=== PATIENT | female | born 1990 | race Caucasian/White ===

== ENCOUNTER 2024-03-05 09:14 | Outpatient (AMB) | payer BC, SELFPAY ==
--- NOTE | 2024-03-05 09:06 | A.OFFPC_ITS ---
Vital Signs 03/05/24 09:35 Height 5 ft 1.61 in Weight 172 lb BMI 31.9 BP 106/68 Blood Pressure Location Lt brachial Position Sitting Pulse 74 Pulse Source Pulse Oximeter Pulse Oximetry (%) 97 Oxygen Delivery Method Room Air Intake Visit Reasons: est care Intake Note: New patient visit Title Department Manager Required: No Allergies No Known Allergies Allergy (Verified 03/05/24 09:06) Medication List - Last Reconciled 03/05/24 by Brunilda Freire PA-C escitalopram oxalate 20 mg PO DAILY norgestimate-ethinyl estradiol 0.18/0.215/0.25 mg-35 mcg (28) (Tri-Estarylla) 1 tab PO DAILY pantoprazole 40 mg PO DAILY valacyclovir 500 mg PO DAILY Tobacco use date assessed: 03/05/24 Dental Screening Dental Screen Date: 03/05/24 Did you have a dental visit in the last 12 months?: Yes Did you have a dental problem in the last 6 months where you did not have access to dental care?: No Was dental information given to patient?: Patient has dentist HPI est care HPI Details History of Present Illness Social History - Employed in [employer] (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 - Recently initiated yoga as a form of e xercise for stress management. - Reports limited alcohol intake, with m ild irregular consumption. - Previously , currently undergoi ng divorce proceedings; has primary custody of an fpyff-trmv-bog daughter. - Living with mother, who provides suppo rt. Review of Systems - Gastrointestinal: Reports frequent bel kristen and chronic nocturnal heartburn. - Psychological: Reports occasional anxi ety attacks not directly linked to stress. Physical Exam General: Cooperative, healthy appearing, comfortable, no acute distress and well developed Orientation: Patient oriented x3 Limitations: No limitations Head: Normal to inspection Ears: Hearing grossly normal bilaterally Nose: Normal external nose present Face and sinus: Normal facial exam Eyes: Appearance normal, both eyes and all related structures Neck: Normal visual inspection and Yes full ROM Respiratory: Normal respiratory effort and able to speak in complete sentences. Clear to auscultation bilaterally Cardiovascular: Regular rate and rhythm. Normal S1 and S2 GI: Normal to inspection. Soft to palpation and nontender Skin: No rashes or lesions noted Neuro: Patient oriented x3 Extremities: Normal to inspection Results Plan - Generalized Anxiety Disorder: Continue escitalopram 20 mg daily. Initiate lorazepam on an as-needed basis for acute anxiety episodes, with close monitoring for frequency to evaluate efficacy of primary medication. Discussed pursuing therapy to develop coping mechanisms. - Gastroesophageal Reflux Disease GERD): Transition from pantoprazole to esomeprazole Nexium) 20 mg daily. Referred for a gastroenterology evaluation for potential endoscopy to assess for esophagitis and H. pylori. Advised dietary modifications including small frequent meals and avoidance of known triggers. - Hemorrhoids: Referral to colorectal [facility] for evaluation of persistent symptomatic hemorrhoid and discuss potential interventions. - Herpes Simplex Virus: Patient to humaira nue valacyclovir as needed for outbreaks. Patient was informed and verbally consented to the use of an ambient scribe for clinic note documentation during this visit. Discussion Notes I discussed with the patient the current status and management of her anxiety disorder, emphasizing the short-term use of lorazepam only for acute episodes, explaining potential risks of dependency. I recommended engaging in therapy for additional support. For GERD, we reviewed medication compliance, the importance of acid reflux meal planning, and the necessity of a gastroenterology consult for possibly overlooked gastrointestinal issues like H. pylori infection and required endoscopic examination. For hemorrhoids, I elaborated on the benefits and risks of surgical intervention through colorectal surgery consultation. I advised maintaining hydration and fiber intake to prevent exacerbation, especially with stressful life events. Patient Instructions - Continue escitalopram as prescribed an d lorazepam only as needed. - Transition to esomeprazole and follow dietary recommendations to manage GERD. - Await contact from gastroenterology an d colorectal surgery for appointments. - Consider therapy for anxiety and famil y therapy options if feasible. - Maintain a balanced diet with adequate fiber and hydration to aid hemorrhoid management. - Report any significant changes in symp toms or health concerns prior to next scheduled visit. [facility] Surgical History (Updated 03/05/24 @ 09:33 by Melissa Hancock CMA) H/O tooth extraction Hx of tonsillectomy H/O section Family History (Updated 03/05/24 @ 09:31 by Melissa Hancock CMA) Mother Diabetes Maternal Aunt Breast cancer Ovarian cancer Social History (Updated 03/05/24 @ 09:32 by Melissa Hancock CMA) Housing: House Housing Other:: Going through a divorce Alcohol intake: current Comment: Once a week Patient Tobacco Use Status: Former Tobacco user Cigarette Packs Per Day: 1 Years Smoked: 4 e-Cigarette/Vaping Use: Never Used Second Hand Smoke Exposure: No service: No Current occupational status: employed Current occupation: [employer] Current occupational exposures/hazards: No Cognitive needs: No Hearing needs: No Vision needs: No Questionnaire PHQ-9 Over the last 2 weeks, how often have you been bothered by any of the following problems? 1. Little interest or pleasure in doing things: not at all 2. Feeling down, depressed, or hopeless: not at all 3. Trouble falling or staying asleep, or sleeping too much: not at all 4. Feeling tired or having little energy: not at all 5. Poor appetite or overeating: not at all 6. Feeling bad about yourself - or that you are a failure or have let yourself or your family down: not at all 7. Trouble concentrating on things, such as reading the newspaper or watching television: not at all 8. Moving or speaking so slowly that other people could have noticed. Or the opposite - being so fidgety or restless that you have been moving around a lot more than usual: not at all 9. Thoughts that you would be better off or of hurting yourself in some way: not at all Total score: 0 Depression Screening Interpretation: Negative Depression Screening Done: Yes 79767 - PHQ-9 Billing: Yes Source: Developed by Drs. Fei Doan, Laney Marie, Enrique Chaparro and colleagues, with an educational ray from [employer]. Thrive Questionnaire Date Thrive assessed: 02/28/24 I am a: Patient What is your living situation today?: I have a steady place to live Within the past 12 months, did the food you bought not last and you didn't have the money to get more?: I choose not to answer this question Within the past 12 months, did you worry whether your food would run out before you got money to buy more?: I choose not to answer this question Do you have trouble paying for medicines?: I choose not to answer this question Do you have trouble getting transportation to medical appointments?: No Do you have trouble paying your heating and electricity bill?: I choose not to answer this question Do you have trouble taking care of your child, family member or friend?: No Do you have trouble with day-to-day activities such as bathing, preparing meals, shopping, managing finances, etc.?: No Are you currently unemployed and looking for a job?: No Are you interested in more education?: I choose not to answer this question Please select the resources that you would like help with: None Currently or been in a relationship where the following occur: I choose not to answer THRIVE Score: 0 AUDIT C Alcohol Use Questionnaire (AUDIT-C) 1. How often do you have a drink containing alcohol?: Monthly or less 2. How many drinks containing alcohol do you have on a typical day when you are drinking?: 1 or 2 3. How often do you have six or more drinks on one occasion?: Never Total Score: 1 NAI-7 AMB Questionnaire NAI-7 Date NAI - 7 assessed: 03/05/24 Feeling nervous, anxious, or on edge: 1 = Several days Not being able to stop or control worryin = Not at all Worrying too much about different things: 1 = Several days Trouble relaxin = Not at all Being so restless that it is hard to sit still: 0 = Not at all Becoming easily annoyed or irritable: 1 = Several days Feeling afraid as if something awful might happen: 0 = Not at all Total NAI-7 score (0-4 normal; 5-9 mild; 10-14 moderate; 15-21 severe): 3 Source: Developed by Drs. Fei Doan, Laney Marie, Enrique Chaparro and colleagues, with an educational ray from [employer]. NAI-7 Assessment Billing NAI-7 Assessment Tool: NAI-7 Assessment 49750 Physical exam (Primary Care) Vital Signs: Last Vital Signs Pulse 74 03/05/24 09:35 BP 106/68 03/05/24 09:35 Pulse Ox 97 03/05/24 09:35 Oxygen Delivery Method Room Air 03/05/24 09:35 BMI result Body Mass Index 31.9 Tobacco/Smoking Status: Tobacco use Status Tobacco use date assessed 03/05/24 03/05/24 09:07 Patient Tobacco Use Status Former Tobacco user 03/05/24 09:39 e-Cigarette/Vaping Use Never Used 03/05/24 09:39 PHQ-9: PHQ-9 Score PHQ-9: Total score 0 03/05/24 09:55 Depression Screening Interpretation: Negative Thrive Assessment: Date of Thrive Assessment Date Thrive assessed 02/28/24 03/05/24 09:07 Currently or been in a relationship where the following occur: I choose not to answer Coding Level of Care Code New Pt Level 4 (59953) Complex EM visit Add On G2211 Diagnoses Generalized anxiety disorder F41.1 Gastroesophageal reflux disease with esophagitis without hemorrhage K21.00 Esophagitis bleeding: without hemorrhage External hemorrhoid, bleeding K64.4 Additional Codes NAI-7 Assessment Billing - NAI-7 Assessment Tool: NAI-7 Assessment 90629 ([id number]) PHQ-9 - 07539 - PHQ-9 Billing: Yes ([id number]) Assessment & Plan Assessment & Plan (1) Generalized anxiety disorder: Code(s): F41.1 - Generalized anxiety disorder Category: Medical (2) GERD with esophagitis: Code(s): K21.00 - Gastro-esophageal reflux disease with esophagitis, without bleeding Category: Medical Qualifiers: Esophagitis bleeding: without hemorrhage Qualified Code(s): K21.00 - Gastro-esophageal reflux disease with esophagitis, without bleeding (3) External hemorrhoid, bleeding: Code(s): K64.4 - Residual hemorrhoidal skin tags Category: Medical Plan . Orders: Orders Complete Blood Count Auto Diff Today F41.1 - Generalized anxiety disorder, K21.00 - Gastro-esophageal reflux disease with esophagitis, without bleeding, K64.4 - Residual hemorrhoidal skin tags, Z00.00 - Encounter for general adult medical examination without abnormal findings Lipid Panel Today F41.1 - Generalized anxiety disorder, K21.00 - Gastro- esophageal reflux disease with esophagitis, without bleeding, K64.4 - Residual hemorrhoidal skin tags, Z00.00 - Encounter for general adult medical examination without abnormal findings TSH reflex Free T4 Today F41.1 - Generalized anxiety disorder, K21.00 - Gastro- esophageal reflux disease with esophagitis, without bleeding, K64.4 - Residual hemorrhoidal skin tags, Z00.00 - Encounter for general adult medical examination without abnormal findings Comprehensive Elkin. Panel Fast Today F41.1 - Generalized anxiety disorder, K21.00 - Gastro-esophageal reflux disease with esophagitis, without bleeding, K64.4 - Residual hemorrhoidal skin tags, Z00.00 - Encounter for general adult medical examination without abnormal findings Referrals Colon & Rectal Referral K64.4 - Residual hemorrhoidal skin tags Gastroenterology Referral K21.00 - Gastro-esophageal reflux disease with esophagitis, without bleeding Medications: New esomeprazole magnesium (Nexium) 20 mg PO DAILY 90 caps 1RF lorazepam 0.5 mg PO DAILY PRN 30 tabs 0RF anxiety 30 days escitalopram oxalate 20 mg PO DAILY 90 tabs 3RF
[2024-03-05 09:35] VITALS: BP 106/68; PULSE 74; O2SAT 97; BMI 31.9
== END 2024-03-05 10:30 | disposition home or self-care (01) ==
PROVIDERS: Visit Provider Physician Assistant
DX: F41.1 Generalized anxiety disorder (principal); K21.00 Gastro-esophageal reflux disease with esophagitis, without bleeding; K64.4 Residual hemorrhoidal skin tags

== ENCOUNTER → 2024-03-05 09:14 | Outpatient (BNVA) | payer BC, SELFPAY | PROVIDERS: Visit Provider Physician Assistant | DX: F41.1 Generalized anxiety disorder (principal); K21.00 Gastro-esophageal reflux disease with esophagitis, without bleeding; K64.4 Residual hemorrhoidal skin tags; Z79.899 Other long term (current) drug therapy | CPT/HCPCS: 96127 ==

== ENCOUNTER 2024-06-11 08:05 | Outpatient (AMB) | payer BC, SELFPAY ==
--- OUTSIDE RECORDS SUMMARY | 2024-06-11 08:10 | XMS_ITS | Continuity of Care Document ---
Author Organization [facility] Address [address] [place] [address] ve [address] [place] [address]- Care Team Providers Care Light Rail Vehicle Operator Name Role Phone Armida Evans Primary Care Physician [place] [facility] [place] - 05/22/24 [facility] [address] [place] [address]- Encounter Diagnosis Hemorrhoids(Discharge Diagnosis) - 05/15/24 Attending Physician: Deya Murphy MD Referring Physician: Armida Evans Encounter Type: Office Visit Medications Escitalopram By Mouth, Daily, 0 Refills, Maintenance, 04/16/24 2:03:00 PM EST, Partial fill upon patient request if the prescription is for a schedule II opioid drug. Start Date: 04/16/24 Status: Ordered Repeat number: 1 esomeprazole 20 mg oral delayed release tablet 1 tablet = 20 mg, By Mouth, 2 times a day, # 180 tablet, 1 Refills, Maintenance, 04/22/24 2:05:00 PMEST, EC Tablet, [facility], Partial fill upon patient request if the prescription is for a schedule II opioid drug., 159, cm, 04/16/24 13:59:00 EST, Height Start Date: 04/22/24 Status: Ordered Quantity: 180.0 Unit: tablet Repeat number: 2 ethinyl estradiol-norgestimate 35 mcg-0.25 mg oral tablet 1 tablet, By Mouth, Daily, 0 Refills, Maintenance, 04/16/24 2:05:00 PM EST, Partial fill upon patient request if the prescription is for a schedule II opioid drug. Start Date: 04/16/24 Status: Ordered Repeat number: 1 Tri-Estarylla By Mouth, Daily, 0 Refills, Maintenance, 04/16/24 2:05:00 PM EST, Partial fill upon patient request if the prescription is for a schedule II opioid drug. Start Date: 04/16/24 Status: Ordered Repeat number: 1 ValACYclovir By Mouth, 0 Refills, Maintenance, 04/16/24 2:06:00 PM EST, Partial fill upon patient request if the prescription is for a schedule II opioid drug. Start Date: 04/16/24 Status: Ordered Repeat number: 1 Problem List Condition Confirmation Course Effective Dates Status Health St atus Informant Hemorrhoids Confirmed Active Obese class I Confirmed Active Diagnosis Diagnosis Type Effective Dates Health Status Clini y[facility] Service Informant Hemorrhoids Discharge Diagnosis 05/15/24 Vital Signs Most recent to oldest [Reference Range]: 1 Height 159 cm (05/15/24 3:24 PM) Weight 77.7 kg (05/15/24 3:24 PM) Oxygen Saturation [94-100 %] 100 % (05/15/24 3:24 PM) Pulse Rate [55-90 bpm] 72 bpm (05/15/24 3:24 PM) Body Mass Index [18.5-24.99 kg/m2] 30.73 kg/m2 *>HHI* (05/15/24 3:24 PM) Blood Pressure [90-138/55-84 mm Hg] 110/ 60mm Hg (05/15/24 3:24 PM) Temperature [96.8-100.4 DegF] 98.1 DegF (05/15/24 3:24 PM) Mode of Delivery (Oxygen) Room air (05/15/24 3:24 PM) Blood pressure sites Arm, right (05/15/24 3:24 PM) Temperature Route Temporal (05/15/24 3:24 PM) Patient Care team information Care Team Personnel Name: Armida Evans Position: Reference Physician Member Role: PCP Address: [address] [place] [address] [place] [address]- Telecom: Care Team Related Persons Name: MATT CORNEJO Insurance Providers Guarantor name: LORETTA Health Plan Information #: 1 Payer: [email or web address] Member Number: [id number] Policy Number: NA Group Number: NA Health Plan Information #: 2 Payer: [email or web address] [place] [employer] Member Number: [id number] Policy Number: NA Group Number: NA
--- OUTSIDE RECORDS SUMMARY | 2024-06-11 08:10 | XMS_ITS | Clinical Summary ---
Author Organization [address] Address [address] [place] [id number] Phone Care Team Providers Care Reed Fixer Name Role Phone Physician, No Pcp Primary Care Provider Unavaila ble Allergies Active Allergy Reactions Criticality Noted Date Comments Other Low 06/10/2015 Dust Mite Reactions: Itching/Pruritus Medications Tri-Estarylla 0.18/0.215/0.25 mg-35 mcg (28) per tablet TAKE 1 TABLET BY MOUTH EVERY DAY 84 tablet 3 4 Active Lactobacillus acidophilus (PROBIOTIC ORAL) Take by mouth daily. Active aluminum chloride (Drysol Dab-O-Matic) 20 % external solution Apply to affected area twice daily 4 06/17/19 25 Active cetirizine (ZyrTEC) 10 mg tablet Take 10 mg by mouth daily. 1 daily Active escitalopram (LEXAPRO) 20 mg tablet TAKE 1 TABLET BY MOUTH EVERY DAY 4 Active fluticasone propionate (FLONASE) 50 mcg/actuation nasal spray 2 Sprays by Each Nare route daily for 360 days. 4 06/17/19 25 Active hydrOXYzine HCL (ATARAX) 10 mg tablet Take 1 Tablet by mouth 2 times daily as needed for Anxiety. 4 Active meclizine (ANTIVERT) 12.5 mg tablet Take 1 Tablet by mouth as needed (dizziness). 4 Active valACYclovir (VALTREX) 500 mg tablet Take 1 Tablet by mouth daily. 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 Overview (05/13/2024): Does not want this discussed in front of family members (only and her mom know) Immunizations Name Administration Dates Next Due Influenza Quadravalent, MDCK , 0.5ml, preservative free (Flucelvax) 6mo and older 01/17/2021,01/07/2018 Influenza trivalent, 0.5mL ( Fluad) 65yo and older 01/12/2016 Influenza trivalent, 0.5mL, preservative free (Fluarix; FluLaval; Fluzone) ages 6mo and older (Afluria) 3 years and older 02/07/2020,01/02/2019,01/29/2017 Td Tetanus diptheria (Tdvax) 7yo and older 09/30 Tdap Tetanus diptheria acell ular pertussis (Boostrix; Adacel) 7yo and older 11/24/2015,10/01/2015 Surgical History Surgery Date Site/Laterality Comments WISDOM TOOTH EXTRACTION 04/02/2010 PROCEDURE: HISTORICAL WISDOM TEETH EXTRACTION; COMMENT: all 4 TYMPANOSTOMY TUBE PLACEMENT PROCEDURE: HISTORICAL PE TUBES SECTION 2016 PROCEDURE: HISTORICAL DELIVERY Medical History Medical History Date Comments Hx of herpes genitalis DX:Hx of herpes genitalis Generalized anxiety disorder 01/14/2021 DX: Generalized anxiety disorder GERD (gastroesophageal reflux disease) DX:GERD (gastroesophageal reflux disease) Family History Medical History Relation Name Comments Breast cancer Aunt bilateral lila ctomy Hyperlipidemia Father Diabetes Mother prediabetes Hyperlipidemia Mother Colon cancer Neg Hx Relation Name Status Comments Aunt Father Alive Mother Alive Social History Tobacco Use Types Packs/Day Years Used Date Smoking Tobacco: Former Cigarettes Q uit: 04/20/2015 Smokeless Tobacco: Never Alcohol Use Standard Drinks/Week Comments Yes 0 (1 standard drink = 0.6 oz pur e alcohol) Comments Unknown Sex and Gender Information Value Date Recorded Sex Assigned at Not on file Legal Sex Female 1:18 PM EST Gender Identity Not on file Sexual Orientation Not on file Obstetrics History Last Filed Vital Signs Vital Sign Reading Time Taken Comments Blood Pressure 110/72 06/22/2023 8:02 AM EDT Pulse 65 04/16/2023 3:27 PM EST Temperature - - Respiratory Rate - - Oxygen Saturation - - Inhaled Oxygen Concentration - - Weight 76.2 kg (167 lb 14.4 oz) 06/22/2023 8:02 AM EDT Height 160 cm (5' 3 ) 04/16/2023 3:27 PM EST Body Mass Index 29.74 04/16/2023 3:27 PM EST Plan of Treatment Upcoming Encounters Date Type Department Care Team (Late st Contact Info) Description 07/03/2024 3:30 PM EDT Office Visit [facility]st[facility] [address] [place] [phone] Edna Veliz DO [address] [place] [address] Health Maintenance Due Date Last Done Comments Hepatitis B Vaccines (1 of 3 - 19+ 3-dose series) 2007 Social Influencers of Health Screening 03/07/2022 COVID-19 Vaccine (2023- season) 2023 08/21/2020, 07/31/2020 Influenza Vaccine (#1) 2023 , 02/07/2020, 01/02/2019, Additional history exists Depression Screening 01/16/2025 01/17/2024 DTaP,Tdap,and Td Vaccines (4 - Td or Tdap) 11/23/2025 11/24/2015, 10/01/2015, 10/01/2015 Cervical Cancer Screening: HPV 03/02/2027 03/02/2022 Cholesterol Screening (Lipid Panel) 06/21/2028 06/22/2023 HIV Screening Completed 06/10/2015 Hepatitis C Screening Completed 01/17/2021 HIB Vaccines Aged Out No longer eligi ble based on patient's age to complete this topic HPV Vaccines Aged Out No longer eligi ble based on patient's age to complete this topic Hepatitis A Vaccines Aged Out No long er eligible based on patient's age to complete this topic IPV Vaccines Aged Out No longer eligi ble based on patient's age to complete this topic MMR Vaccines Aged Out No longer eligi ble based on patient's age to complete this topic Meningococcal ACWY Vaccine Aged Out N o longer eligible based on patient's age to complete this topic Meningococcal B Vacine Aged Out No lo nger eligible based on patient's age to complete this topic Pneumococcal Vaccine: Pediatrics (0 to 5 Years) and At-Risk Patients (6 to 64 Years) Aged Out No longer eligible based on patient's age to complete this topic RSV Immunization Patients Under 20 months Aged Out No longer eligible based on patient's age to complete this topic Varicella Vaccines Aged Out No longer eligible based on patient's age to complete this topic Procedures Procedure Name Priority Date/Time Associated Diagnosis Comments DEPRESSION SCREENING Routine 01/17/2024 LIPID PANEL Routine 06/22/2023 HPV Routine 03/02/2022 HEPATITIS C SCREENING Routine 01/17/2021 HIV SCREENING Routine 06/10/2015 from Last 3 Months or Most Recently Relevant to Health Maintenance Results * Depression Screening (01/17/2024) [facility] Depression Screening abstracted [facility] Provider HEALTH MAINTENANCE Final Result * (ABNORMAL) Lipid panel (06/22/2023) [facility] LDL/HDL Ratio 3 0 - 4 Triglycerides 134 0 - 150 mg/dL Cholesterol 209(A) 0 - 200 mg/dL HDL 67 >=40 mg/dL LDL Cholesterol 116(A) 0 - 100 mg/dL Blood Venous blood specimen / Unknown [facility] Provider LAB BLOOD ORDERABLES Alyssa l Result * Cervical Cancer Screening: HPV (03/02/2022) [facility] Cervical Cancer Screening: HPV negative,a bstracted [facility] Provider HEALTH MAINTENANCE Final Result * Hepatitis C Screening (01/17/2021) [facility] Hepatitis C Screening abstracted us Historical Provider HEALTH MAINTENANCE Final Result * HIV Screening (06/10/2015) HIV Screening abstracted Historical Provider HEALTH MAINTENANCE Final Result from Last 3 Months or Most Recently Relevant to Health Maintenance Insurance [facility] Care Teams Reed Fixer Relationship Specialty Start Date End Date Physician, No Pcp PCP - General 05/12/24
--- OUTSIDE RECORDS SUMMARY | 2024-06-11 08:10 | XMS_ITS | Continuity of Care Document ---
Author Organization [facility] Address [address] [place] [address]- Care Team Providers Care Frame Table Operator Name Role Phone Armida Evans Primary Care Physician [place] [facility] [place] 05/22/24 [facility] [address] [place] [phone]- Encounter Type: Triage Medications Escitalopram By Mouth, Daily, 0 Refills, [...] Confirmed Active Obese class I Confirmed Active Patient Care team information Care Team Personnel Name: Armida Evans Position: Reference Physician Member Role: PCP Address: [address] [place] [address] Family Medicine [address] Telecom: Care Team Related Persons Name: MATT CORNEJO Insurance Providers Guarantor name: LORETTA Health Plan Information #: 1 Payer: [employer] Member Number: NA Policy Number: NA Group Number: NA
--- NOTE | 2024-06-11 08:11 | MHC.PC.OV ---
Vital Signs 06/11/24 08:14 Height 5 ft 1.61 in Weight 168 lb 6 oz BMI 31.2 BP 104/70 Blood Pressure Location Rt brachial Position Sitting Respiration 12 Pulse 76 Pulse Source Pulse Oximeter Pulse Oximetry (%) 96 Oxygen Delivery Method Room Air Intake Visit Reasons: cpe Intake Note: Follow up [facility] [employer] Support Required: No Allergies No Known Allergies Allergy (Verified 06/11/24 08:13) Medication List - Last Reconciled 06/11/24 by Brunilda Freire PA-C escitalopram oxalate 20 mg PO DAILY esomeprazole magnesium (Nexium) 20 mg PO BID lorazepam 0.5 mg PO DAILY PRN 30 days norgestimate-ethinyl estradiol 0.18/0.215/0.25 mg-35 mcg (28) (Tri-Estarylla) 1 tab PO DAILY valacyclovir 500 mg PO DAILY Tobacco use date assessed: 06/11/24 Dental Screening Dental Screen Date: 03/05/24 HPI cpe HPI Details Pt is a 34 y/o female who presents today for a physical. Pysch: Generalized Anxiety Disorder- well controlled on escitalopram 20 mg daily. She is using lorazepam prn. feels that everything is starting to settle with her divorce. GI: GERD- On Nexium 40g daily. She is feeling better. She was referred for a gastroenterology and saw them. Advised dietary modifications including small frequent meals and avoidance of known triggers. Hemorrhoids- Referral to colorectal surgery for evaluation of persistent symptomatic hemorrhoid and discuss potential interventions. She states that she is leaning towards getting it done. Derm: HSV- Patient to continue valacyclovir as needed for outbreaks. 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 - Recently initiated yoga as a form of exercise for stress management. - Reports limited alcohol intake, with mild irregular consumption. - Previously , currently undergoing divorce proceedings; has primary custody of an [id number] daughter. - Living with mother, who provides support. PFSH Surgical History (Updated 03/05/24 @ 09:33 by Melissa Hancock CMA) H/O tooth extraction Hx of tonsillectomy H/O section Family History (Updated 03/05/24 @ 09:31 by Melissa Hancock CMA) Mother Diabetes Maternal Aunt Breast cancer Ovarian cancer Social History (Updated 03/05/24 @ 09:32 by Melissa Hancock CMA) Housing: House Housing Other:: Going through a divorce Alcohol intake: current Comment: Once a week Patient Tobacco Use Status: Former Tobacco user Cigarette Packs Per Day: 1 Years Smoked: 4 e-Cigarette/Vaping Use: Never Used Second Hand Smoke Exposure: No service: No Current occupational status: employed Current occupation: [employer] Current occupational exposures/hazards: No Cognitive needs: No Hearing needs: No Vision needs: No Questionnaire PHQ-9 Over the last 2 weeks, how often have you been bothered by any of the following problems? 1. Little interest or pleasure in doing things: not at all 2. Feeling down, depressed, or hopeless: not at all 3. Trouble falling or staying asleep, or sleeping too much: several days 4. Feeling tired or having little energy: several days 5. Poor appetite or overeating: not at all 6. Feeling bad about yourself - or that you are a failure or have let yourself or your family down: not at all 7. Trouble concentrating on things, such as reading the newspaper or watching television: not at all 8. Moving or speaking so slowly that other people could have noticed. Or the opposite - being so fidgety or restless that you have been moving around a lot more than usual: not at all 9. Thoughts that you would be better off or of hurting yourself in some way: not at all Total score: 2 Source: Developed by Drs. Fei Doan, Laney Marie, Enrique Chaparro and colleagues, with an educational ray from [employer]. Thrive Questionnaire Date Thrive assessed: 02/28/24 I am a: Patient What is your living situation today?: I have a steady place to live Within the past 12 months, did the food you bought not last and you didn't have the money to get more?: Sometimes True Within the past 12 months, did you worry whether your food would run out before you got money to buy more?: Sometimes True Do you have trouble paying for medicines?: No Do you have trouble getting transportation to medical appointments?: No Do you have trouble paying your heating and electricity bill?: No Do you have trouble taking care of your child, family member or friend?: No Do you have trouble with day-to-day activities such as bathing, preparing meals, shopping, managing finances, etc.?: No Are you currently unemployed and looking for a job?: No Are you interested in more education?: Yes Please select the resources that you would like help with: None Currently or been in a relationship where the following occur: No concerns reported THRIVE Score: 2 AUDIT C Alcohol Use Questionnaire (AUDIT-C) 1. How often do you have a drink containing alcohol?: Monthly or less 2. How many drinks containing alcohol do you have on a typical day when you are drinking?: 1 or 2 3. How often do you have six or more drinks on one occasion?: Never Total Score: 1 NAI-7 AMB Questionnaire NAI-7 Date NAI - 7 assessed: 03/05/24 Feeling nervous, anxious, or on edge: 0 = Not at all Not being able to stop or control worryin = Not at all Worrying too much about different things: 0 = Not at all Trouble relaxin = Not at all Being so restless that it is hard to sit still: 0 = Not at all Becoming easily annoyed or irritable: 0 = Not at all Feeling afraid as if something awful might happen: 0 = Not at all Total NAI-7 score (0-4 normal; 5-9 mild; 10-14 moderate; 15-21 severe): 0 Source: Developed by Drs. Fei Doan, Laney Marie, Enrique Chaparro and colleagues, with an educational ray from [employer]. Physical exam (Primary Care) Tobacco/Smoking Status: Tobacco use Status Tobacco use date assessed 03/05/24 06/11/24 08:12 Patient Tobacco Use Status Former Tobacco user 06/11/24 08:12 e-Cigarette/Vaping Use Never Used 06/11/24 08:12 PHQ-9: PHQ-9 Score PHQ-9: Total score 2 06/11/24 08:12 Thrive Assessment: Date of Thrive Assessment Date Thrive assessed 02/28/24 06/11/24 08:12 Currently or been in a relationship where the following occur: No concerns reported Const Orientation/consciousness: patient oriented x3 HENMT Ears: hearing grossly normal bilaterally and TM's normal bilaterally General nose exam: No nasal polyps present Face and sinus: Yes sinuses nontender Mouth: Normal oral and palatal mucosa present Eyes Pupils: Equal, round and reactive pupils present EOM: EOMs intact bilaterally Neck Neck: Yes full ROM and Yes no lymphadenopathy Thyroid: Thyroid normal Chest Chest palpation & inspection: normal inspection of the chest Resp Auscultation: clear to auscultation bilaterally Cardio Rate: regular rate Rhythm: regular rhythm Heart sounds: S1 normal heart sound present and S2 normal heart sound present Peripheral pulses: Peripheral pulses 2+ throughout GI Other: Soft, nontender Auscultation: normal bowel sounds Rectal Exam - Female: deferred General: Yes no CVA tenderness Back/Spine/Pelvis Other: Nontender Back: no CVA tenderness Skin General skin exam: no rashes or lesions noted Neuro General: patient oriented x3, gait normal, CN's II-XI intact bilaterally and deep tendon reflexes 2+ bilaterally Cranial nerves: Yes Equal, round and reactive pupils present Motor exam (neuro): 5/5 motor strength present throughout Sensory Exam: double simultaneous stimulation for sensation normal Coordination: [id number] test normal and Romberg test negative Extrem General: Yes normal to inspection and Yes full ROM Psych Affect: normal affect Attitude: cooperative Thought process: Normal thought process present Thought content: Normal thought content present Insight: Good insight present (Psych) Judgement: Good judgement present (Psych) Coding Level of Care Code Est Pt Prev Care 18-39y(65085) Diagnoses Routine general medical examination at a health care facility Z00.00 Generalized anxiety disorder F41.1 Gastroesophageal reflux disease with esophagitis without hemorrhage K21.00 Esophagitis bleeding: without hemorrhage Assessment & Plan Assessment & Plan (1) Routine general medical examination at a health care facility: Code(s): Z00.00 - Encounter for general adult medical examination without abnormal findings Plan: reviewed labs ordered (2) Generalized anxiety disorder: Code(s): F41.1 - Generalized anxiety disorder Category: Medical Plan: Continue current regimen. (3) GERD with esophagitis: Code(s): K21.00 - Gastro-esophageal reflux disease with esophagitis, without bleeding Category: Medical Qualifiers: Esophagitis bleeding: without hemorrhage Qualified Code(s): K21.00 - Gastro-esophageal reflux disease with esophagitis, without bleeding Plan: Following with GI. Feels some improvement with the increased dose of the Nexium but does still sometimes have breakthrough symptoms. Orders: Referrals VP Referral Z01.419 - Encounter for gynecological examination (general) (routine) without abnormal findings Medications: Changed From esomeprazole magnesium (Nexium) 20 mg PO DAILY 90 caps 1RF To esomeprazole magnesium (Nexium) 20 mg PO BID Refilled lorazepam 0.5 mg PO DAILY 30 days PRN 30 tabs 0RF anxiety
[2024-06-11 08:14] VITALS: BP 104/70; PULSE 76; RESP 12; O2SAT 96; BMI 31.2
== END 2024-06-11 08:38 | disposition home or self-care (01) ==
LOC: HO.HMCFM 08:06
PROVIDERS: PCP Physician Assistant Medical; Visit Provider Physician Assistant
DX: Z00.00 Encounter for general adult medical examination without abnormal findings (principal); F41.1 Generalized anxiety disorder; K21.00 Gastro-esophageal reflux disease with esophagitis, without bleeding

== ENCOUNTER 2024-06-11 08:47 | Outpatient (REF) | payer BC, SELFPAY ==
--- OUTSIDE RECORDS SUMMARY | 2024-06-11 09:21 | XMS_ITS | Clinical Summary ---
Author Organization [address] Address [address] [place] [phone] Phone Care Team Providers Care Retail Key Holder Name Role Phone Physician, No Pcp Primary [...] [facility] [address] [place] [address] Edna Veliz DO [address] [place] [address] Health Maintenance Due Date Last Done Comments [...] Health Maintenance Results * Depression Screening (01/17/2024) [facility] Depression Screening abstracted [facility] Provider HEALTH MAINTENANCE Final Result * (ABNORMAL) Lipid panel (06/22/2023) [facility] LDL/HDL Ratio 3 0 - 4 Triglycerides 134 0 - 150 mg/dL Cholesterol 209(A) 0 - 200 mg/dL HDL 67 >=40 mg/dL LDL Cholesterol 116(A) 0 - 100 mg/dL Blood Venous blood specimen / Unknown [facility] Provider LAB BLOOD ORDERABLES Alyssa l Result * Cervical Cancer Screening: HPV (03/02/2022) [facility] Cervical Cancer Screening: HPV negative,a bstracted [facility] Provider HEALTH MAINTENANCE Final Result * Hepatitis C Screening (01/17/2021) [facility] Hepatitis C Screening abstracted us Historical Provider HEALTH MAINTENANCE Final Result * HIV Screening (06/10/2015) HIV Screening abstracted Historical Provider HEALTH MAINTENANCE Final Result from Last 3 Months or Most Recently Relevant to Health Maintenance Insurance [facility] Care Teams Retail Key Holder Relationship Specialty Start Date End Date Physician, No Pcp PCP - General 05/12/24
[2024-06-11 11:49] LABS: MANUAL DIFF FLAG NO
[2024-06-11 11:53] LABS: Basophils Percent Auto 0.6 % (0-2); Eosinophils Percent Auto 0.3 % (0-4); Hematocrit 39.7 % (37.0-47.0); Imm Gran Abs Auto 0.01 X10*3/uL (0.00-0.03); Imm Gran Pct Auto 0.1 % (0.0-0.4); Lymphocytes Absolute Auto 2.3 X10*3/uL (1.2-4.9); Lymphocytes Percent Auto 31.8 % (20-40); Mean Corpuscular HGB Conc 32.7 g/dl (31.0-35.0); Mean Corpuscular Hemoglobin 30.7 pg (27.0-33.0); Mean Corpuscular Volume 93.6 fL (80.0-98.0); Mean Platelet Volume 10.7 fL (9.4-12.3); Monocytes Absolute Auto 0.4 X10*3/uL (0.1-1.2); Monocytes Percent Auto 5.8 % (2-11); Neutrophils Absolute Auto 4.4 x10*3/uL (2.0-8.3); Neutrophils Percent Auto 61.4 % (45-73); Platelet Count 332 X10*3/uL (160-400); Red Blood Count 4.24 X10*6/uL (4.20-5.50); Red Cell Distribution Width 12.3 % (11.0-16.0); White Blood Count 7.2 X10*3/uL (4.8-10.8)
[2024-06-11 12:18] LABS: Alanine Aminotransferase 16 U/L (0-31); Albumin Level 4.3 g/dL (3.5-5.0); Alkaline Phosphatase 48 U/L (39-117); Anion Gap 10 (12-20); Aspartate Amino Transferase 19 U/L (5-31); Bilirubin Total 0.3 mg/dL (0.0-1.0); Blood Urea Nitrogen 16 mg/dL (9-16); Calcium 9.1 mg/dL (8.4-10.2); Carbon Dioxide 25 mmol/L (22-29); Chloride 107 mmol/L (96-108); Cholesterol 229 mg/dL (<200); Estimated Glomerular Filt Rate > 60; Glucose Fasting 86 mg/dL (60-99); HDL Cholesterol 60 mg/dL (>40); LDL Cholesterol Calculated 130 mg/dL (<100); Potassium 4.3 mmol/L (3.3-5.1); Sodium 138 mmol/L (135-145); Total Protein 7.8 g/dL (6.5-8.0); Triglycerides 195 mg/dL (<150)
== END 2024-06-11 08:48 | disposition home or self-care (01) ==
LOC: HO.WFDLDS 08:47
PROVIDERS: Visit Provider Physician Assistant
DX: Z00.00 Encounter for general adult medical examination without abnormal findings (principal); F41.1 Generalized anxiety disorder; K21.00 Gastro-esophageal reflux disease with esophagitis, without bleeding; K64.4 Residual hemorrhoidal skin tags; Z13.6 Encounter for screening for cardiovascular disorders
CPT/HCPCS: 36415; 80053; 80061; 84443; 85025